=== PATIENT | male | born 1990 | race Two or more races ===

== ENCOUNTER 2018-11-13 09:48 | Emergency (ER) | payer SELFPAY ==
[~2018-11-13] VITALS: Ht 177.8 cm; Wt 90.7 kg
--- NOTE | 2018-11-13 10:13 | PHYS DOC ---
Adult General Chief Complaint Chief Complaint: LOWEREXTREMITY INJURY HPI HPI Patient is a 28 year old male with no significant medical history who presents today with nail in the left thigh. Patient states holding a nail gun trying to pass it to his workmate when he accidentally pulled the trigger sending the nail into his thigh. Review of Systems Review of Systems Constitutional: Denies fever or chills [] Musculoskeletal: Denies back pain or joint pain [] Integument: Reports nail in the left thigh Neurologic: Denies headache, focal weakness or sensory changes [] All other systems were reviewed and found to be within normal limits, except as documented in this note. Current Medications Current Medications Current Medications Medications (Trade) Dose Ordered Sig/Dimitry Start Time Stop Time Status Last Admin Dose Admin Acetaminophen/ Hydrocodone Bitart (Lortab 5/325) 2 tab 1X ONCE 11/13/18 10:45 11/13/18 10:46 DC 11/13/18 10:56 2 TAB Lidocaine HCl (Xylocaine 1% Pf 30ml Vial) 30 ml 1X ONCE 11/13/18 10:47 11/13/18 10:48 DC 11/13/18 10:55 30 ML Naproxen (Naprosyn) 500 mg 1X STAT 11/13/18 10:45 11/13/18 10:46 DC 11/13/18 10:56 500 MG Piperacillin Sod/ Tazobactam Sod 3.375 gm/Sodium Chloride 50 ml @ 100 mls/hr 1X ONCE 11/13/18 11:30 11/13/18 11:59 DC 11/13/18 11:30 100 MLS/HR Allergies Allergies Allergies Coded Allergies Type Severity Reaction Last Updated Verified No Known Drug Allergies 11/13/18 No Physical Exam Physical Exam Constitutional: Well developed, well nourished, no acute distress, non-toxic appearance. [] Skin: See extremity Back: No tenderness, no CVA tenderness. [] Extremities: Left ventral thigh distal end with a puncture wound no nail is visualized on the top of the skin. No cyanosis, no clubbing, Limited ROM due to pain. +2 left pedal pulse cap refill less than 2 seconds the left lower extremity. Sensation intact to the left lower extremity. Neurologic: Alert and oriented X 3, normal motor function, normal sensory function, no focal deficits noted. [] Psychologic: Affect normal, judgement normal, mood normal. [] Current Patient Data Vital Signs Vital Signs Date Time Temp Pulse Resp B/P (MAP) Pulse Ox O2 Delivery O2 Flow Rate FiO2 11/13/18 10:56 16 98 Room Air 11/13/18 10:37 98.4 99 142/89 (106) 98.4 EKG EKG [] Radiology/Procedures Radiology/Procedures []PROCEDURE: LEFT FEMUR XRAY Examination: LEFT FEMUR XRAY History: Nail in the thigh. Comparison/Correlation: None Findings: Frontal and lateral views of the left femur were obtained. Left femoral intramedullary deepak is present. Associated screws present at the proximal femoral shaft level. There are 2 screws transversely oriented with the deepak at the distal femoral metaphyseal level and at the level of the femoral condyles. There is a nail which is obliquely oriented anteroposteriorly along the medial aspect of the distal femoral shaft and diametaphyseal region. Callus formation is noted involving the distal femoral shaft. Impression: A nail is present within soft tissues medial to the distal femoral shaft level. Postoperative findings. Electronically signed by: Matthew Mejia MD (11/13/2018 10:27 AM) [id number] DICTATED and SIGNED BY: MATTHEW MEJIA MD DATE: 11/13/18 1025 Course & Med Decision Making Course & Med Decision Making Pertinent Labs and Imaging studies reviewed. (See chart for details) This is a 28-year-old male patient presented to the ED today with nail in his left thigh, see history of present illness. Tetanus up-to-date- he states it was given to him approx. 4 years ago. Left femur xay-A nail is present within soft tissues medial to the distal femoral shaft level. Postoperative findings. Patient was given Zosyn in the ED, wound was cleaned. Dressing applied. Consulted with DR. Winston, he states patient is to be given a broad-spectrum antibiotics and be discharged. He states patient is to call his clinic and set up a follow-up appointment as an outpatient. Above information provided to patient. Also discharged with Cephalexin and [place]. Dragon Disclaimer Dragon Disclaimer This electronic medical record was generated, in whole or in part, using a voice recognition dictation system. Departure Departure Impression: Primary Impression: Foreign body (FB) in soft tissue Disposition: 01 HOME, SELF-CARE Condition: STABLE Referrals: BEL WINSTON II, MD Raad his office today and set up a follow up appointment Patient Instructions: Foreign Body Additional Instructions: You were evaluated in the emergency room and noted to have a nail in your left thigh. Please contact the provided orthopedic doctor today and set up a follow- up appointment. Take the prescribed antibiotics until completed. Ice and elevate the extremity. Scripts Hydrocodone/Apap 5-325 (NORCO 5-325 TABLET) 1 Each Tablet 1-2 TAB PO Q6HRS PRN for PAIN, #30 TAB Prov: OLIVIA GUTIERREZ APRN 11/13/18 Cephalexin (CEPHALEXIN) 500 Mg Tablet 1 TAB PO QID, #40 TAB Prov: OLIVIA GUTIERREZ APRN 11/13/18 OLIVIA GUTIERREZ APRN Nov 13, 2018 10:13
--- NOTE | 2018-11-13 10:30 | RAD ---
Examination: LEFT FEMUR XRAY History: Nail in the thigh. Comparison/Correlation: None Findings: Frontal and lateral views of the left femur were obtained. Left femoral intramedullary deepak is present. Associated screws present at the proximal femoral shaft level. There are 2 screws transversely oriented with the deepak at the distal femoral metaphyseal level and at the level of the femoral condyles. There is a nail which is obliquely oriented anteroposteriorly along the medial aspect of the distal femoral shaft and diametaphyseal region. Callus formation is noted involving the distal femoral shaft. Impression: A nail is present within soft tissues medial to the distal femoral shaft level. Postoperative findings. Electronically signed by: Matthew Hilliard MD (11/13/2018 10:27 AM) [id number]
[2018-11-13 10:37] VITALS: BP 142/89
[2018-11-13] MEDS ORDERED: NAPROXEN 500 MG TABLET PO STA (10:45)
[2018-11-13] MEDS ORDERED: HYDROcodone/APAP 5/325MG 1 TAB TABLET PO ONE (10:45)
[2018-11-13] MEDS ORDERED: LIDOCAINE 1% PF 30 ML VIAL. INJ ONE (10:47)
[2018-11-13] MEDS ORDERED: PIPERACILLIN/TAZOBACTAM 3.375 GM in IV NORMAL SALINE 50ML 50 ML IV ONE (11:30)
[2018-11-13] MEDS ORDERED: HYDR-3164 PO (13:11)
[2018-11-13] MEDS ORDERED: CEPH500T PO (13:11)
[2018-11-13] MEDS ORDERED: NEOMY/BACITR/POLYMYXIN OINT PACKET. TP ONE (13:12)
[2018-11-14] MEDS ORDERED: LIDOCAINE 1% PF 2 ML VIAL. ID PRN (07:00)
[2018-11-14] MEDS ORDERED: ONDANSETRON PF 4 MG/2 ML VIAL. IV PRN (07:00)
[2018-11-14] MEDS ORDERED: fentaNYL PF VIAL 100 MCG/2 ML VIAL IV PRN ×2 (07:00)
[2018-11-14] MEDS ORDERED: HYDROmorphone 2 MG/ML VIAL IV PRN (07:00)
[2018-11-14] MEDS ORDERED: MORPHINE SULFATE 2 MG/ML VIAL. IV PRN (07:00)
[2018-11-14] MEDS ORDERED: PROCHLORPERAZINE 10 MG/2 ML VIAL. IV PRN (07:00)
[2018-11-14] MEDS ORDERED: IV RINGERS,LACTATED 1000ML 1,000 ML IV SCH (07:00)
== END 2018-11-13 13:21 | disposition home or self-care (01) ==
LOC: ER 09:48
DX: S70.352A Superficial foreign body, left thigh, initial encounter (principal); S71.142A Puncture wound with foreign body, left thigh, initial encounter; W29.4XXA Contact with nail gun, initial encounter; Y93.89 Activity, other specified; Y92.89 Other specified places as the place of occurrence of the external cause; Y99.8 Other external cause status
CPT/HCPCS: 73552; 96365; 99283; J2543

== ENCOUNTER 2018-11-21 06:42 | Day surgery (SDC) | payer SELFPAY ==
[~2018-11-21] VITALS: Ht 177.8 cm; Wt 90.7 kg
[~2018-11-21 06:42] MED LIST: CEPH500T PO; DEXAMETHASONE SOD PHOS 20 MG/5 ML VIAL. ONE; HYDR-3164 PO; LIDOCAINE 2% PF 5 ML VIAL. ONE; ONDANSETRON PF 4 MG/2 ML VIAL. ONE; PROPOFOL 20 ML IV ONE; fentaNYL PF VIAL 100 MCG/2 ML VIAL ONE
[2018-11-21] MEDS ORDERED: LIDOCAINE 1% PF 2 ML VIAL. ID PRN (07:00)
[2018-11-21] MEDS ORDERED: ONDANSETRON PF 4 MG/2 ML VIAL. IV PRN (07:00)
[2018-11-21] MEDS ORDERED: HYDROmorphone 2 MG/ML VIAL IV PRN (07:00)
[2018-11-21] MEDS ORDERED: PROCHLORPERAZINE 10 MG/2 ML VIAL. IV PRN (07:00)
[2018-11-21] MEDS ORDERED: IV RINGERS,LACTATED 1000ML 1,000 ML IV SCH (07:00)
[2018-11-21] MEDS ORDERED: fentaNYL PF VIAL 100 MCG/2 ML VIAL IV PRN ×2 (07:00)
[2018-11-21] MEDS ORDERED: MORPHINE SULFATE 4 MG/ML VIAL. IV PRN (07:00)
[2018-11-21] MEDS ORDERED: LIDOCAINE 1% PF 30 ML VIAL. ONE (07:12)
[2018-11-21] MEDS ORDERED: BUPIVACAINE MPF 0.5% 30 ML VIAL. ONE (07:13)
[2018-11-21] MEDS ORDERED: MIDAZOLAM HCL/PF 2 MG/2 ML VIAL. ONE (07:32)
[2018-11-21] MEDS ORDERED: fentaNYL PF VIAL 100 MCG/2 ML VIAL ONE (08:05)
[2018-11-21] MEDS ORDERED: PROPOFOL 20 ML IV ONE (08:06)
[2018-11-21] MEDS ORDERED: SEVOFLURANE 61 TO 120 MINUTES. IH ONE (08:21)
[2018-11-21] MEDS ORDERED: BUPIVAC MPF-EPI 0.5%-1:200000 30 ML VIAL. ONE (08:26)
[2018-11-21] MEDS ORDERED: BUPIVAC MPF-EPI 0.5%-1:200000 30 ML VIAL. INJ ONE (08:30)
[2018-11-21] MEDS ORDERED: SEVOFLURANE 31 TO 60 MINUTES. IH ONE (08:32)
--- NOTE | 2018-11-21 08:51 | DISCH ---
DISCHARGE INSTRUCTIONS Condition on Discharge Condition on Discharge: Stable Activity After Discharge Activity Instructions for Disc: Activity as tolerated Other activity instructions: no sports or athletics untiul cleared by surgeon Bathing Instructions: Shower-keep dressing dry Weight Bearing Status after Di: As tolerated Diet after Discharge Diet after Discharge: Regular Wound Incision Care Wound/Incision Care: Ice to area for comfort, Keep wound/cast CDI, Change dressing Other wound/incision instructi: ok to change dressing after [address] after DC Call your doctor for: Concerns you may have Follow-Up Follow up with: Delon in 2 wks BEL WINSTON II, MD Nov 21, 2018 08:51
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
[2018-11-21] MEDS ORDERED: DOCU-109 PO (08:59)
[2018-11-21] MEDS ORDERED: ONDA8TAB9 PO (09:00)
[2018-11-21] MEDS ORDERED: OXYC1TAB15 PO (09:00)
[2018-11-21] MEDS ORDERED: oxyCODONE/APAP 5/325 1 TAB TABLET PO ONE (09:30)
[2018-11-21 10:10] VITALS: BP 159/83
== END 2018-11-21 10:20 | disposition home or self-care (01) ==
LOC: SURG 06:42
PROVIDERS: ATTEND Orthopaedic Surgery Sports Medicine
DX: S70.352A Superficial foreign body, left thigh, initial encounter (principal); F17.210 Nicotine dependence, cigarettes, uncomplicated; Z98.890 Other specified postprocedural states; Z72.89 Other problems related to lifestyle; Z79.899 Other long term (current) drug therapy; W29.4XXA Contact with nail gun, initial encounter; Y93.89 Activity, other specified; Y92.89 Other specified places as the place of occurrence of the external cause; Y99.8 Other external cause status
CPT/HCPCS: 10121; 76000; A7015; J0696; J1100; J2001; J2250; J2405; J2704; J3010; J3490; A4461

== ENCOUNTER 2019-06-13 17:27 | Emergency (ER) | payer SELFPAY ==
[~2019-06-13] VITALS: Ht 170.2 cm; Wt 81.6 kg
[~2019-06-13 17:27] MED LIST changes: -DEXAMETHASONE SOD PHOS 20 MG/5 ML VIAL. ONE; +DOCU-109 PO; -LIDOCAINE 2% PF 5 ML VIAL. ONE; +ONDA8TAB9 PO; -ONDANSETRON PF 4 MG/2 ML VIAL. ONE; +OXYC1TAB15 PO; -PROPOFOL 20 ML IV ONE; -fentaNYL PF VIAL 100 MCG/2 ML VIAL ONE
[2019-06-13 17:50] VITALS: BP 146/75
[2019-06-13] MEDS ORDERED: AMOX1TAB61 PO (18:18)
--- NOTE | 2019-06-13 18:19 | PHYS DOC ---
Past Medical History Past Medical History: No Pertinent History Past Surgical History: Other Additional Past Surgical Histo: LEFT LEG Alcohol Use: Occasionally Drug Use: Marijuana Adult General Chief Complaint Chief Complaint: FOREIGNBODY EAR HPI HPI Patient is a 28 year old male that presents with foreign body in his left ear. The patient states yesterday that he got a Q-tip stuck in his left ear. He states she's tried to get it out himself and that he has been using drops in the ear that he's been unsuccessful. He states his been extremely painful 10 out of 10 pain. Review of Systems Review of Systems Constitutional: Denies fever or chills [] Eyes: Denies change in visual acuity, redness, or eye pain [] HENT: Reports L ear pain. Respiratory: Denies cough or shortness of breath [] Cardiovascular: No additional information not addressed in HPI [] GI: Denies abdominal pain, nausea, vomiting, bloody stools or diarrhea [] : Denies dysuria or hematuria [] Musculoskeletal: Denies back pain or joint pain [] Integument: Denies rash or skin lesions [] Neurologic: Denies headache, focal weakness or sensory changes [] Endocrine: Denies polyuria or polydipsia [] Complete systems were reviewed and found to be within normal limits, except as documented in this note. Allergies Allergies Allergies Coded Allergies Type Severity Reaction Last Updated Verified No Known Drug Allergies 06/13/19 No Physical Exam Physical Exam Constitutional: Well developed, well nourished, no acute distress, non-toxic appearance. [] HENT: Normocephalic, atraumatic, bilateral external ears normal, L tympanic membrane is blocked by foreign body. oropharynx moist, no oral exudates, nose normal. [] Eyes: PERRLA, EOMI, conjunctiva normal, no discharge. [] Neck: Normal range of motion, no tenderness, supple, no stridor. [] Cardiovascular:Heart rate regular rhythm, no murmur [] Lungs & Thorax: Bilateral breath sounds clear to auscultation [] Abdomen: Bowel sounds normal, soft, no tenderness, no masses, no pulsatile masses. [] Skin: Warm, dry, no erythema, no rash. [] Back: No tenderness, no CVA tenderness. [] Extremities: No tenderness, no cyanosis, no clubbing, ROM intact, no edema. [] Neurologic: Alert and oriented X 3, normal motor function, normal sensory funct ion, no focal deficits noted. [] Psychologic: Affect normal, judgement normal, mood normal. [] Current Patient Data Vital Signs Vital Signs Date Time Temp Pulse Resp B/P (MAP) Pulse Ox O2 Delivery O2 Flow Rate FiO2 06/13/19 17:50 98.5 61 18 146/75 (98) 97 Room Air 98.5 EKG EKG [] Radiology/Procedures Radiology/Procedures [] Course & Med Decision Making Course & Med Decision Making Pertinent Labs and Imaging studies reviewed. (See chart for details) Patient has Q-tip in L ear. Removed Q tip with alligator forceps. The tympanic membrane is erythematous in the L ear and bulging. Will place on Augmentin. Dragon Disclaimer Dragon Disclaimer This electronic medical record was generated, in whole or in part, using a voice recognition dictation system. Departure Departure Impression: Primary Impression: Foreign body of ear, left Additional Impression: Otitis media Disposition: 01 HOME, SELF-CARE Condition: STABLE Referrals: NO PCP (PCP) Patient Instructions: Ear Foreign Body, Otitis Media, Adult Additional Instructions: Thank you for visiting [facility]. We appreciate you trusting us with your care. If any additional problems come up don't hesitate to return to visit us. Please follow up with your primary care provider so they can plan additional care if needed and know about the problem that you had. If symptoms worsen come back to the Emergency Department. Any concerning symptoms that start such as chest pain, shortness of air, weakness or numbness on one side of the b tanika, running high fevers or any other concerning symptoms return to the ER. You have been prescribed an antibiotic today to help fight your infection. Please take all of the antibiotic as directed. If after 48 hours the infection is not improving, please return for more care. If the infection worsens, return to ER for additional care. Scripts Amoxicillin/Potassium Clav (AUGMENTIN 875-125 TABLET) 1 Each Tablet 1 TAB PO BID for 7 Days, #14 TAB Prov: NAN BEAVERS CLINICAL RN 06/13/19 Problem Qualifiers Primary Impression: Foreign body of ear, left Encounter type: initial encounter Qualified Codes: T16.2XXA - Foreign body in left ear, initial encounter Additional Impression: Otitis media Chronicity: acute Laterality: left NAN BEAVERS APRN Jun 13, 2019 18:19
== END 2019-06-13 18:26 | disposition home or self-care (01) ==
LOC: ER 17:27
DX: T16.2XXA Foreign body in left ear, initial encounter (principal); H66.92 Otitis media, unspecified, left ear
CPT/HCPCS: 69200; 99284

== ENCOUNTER 2019-08-17 09:34 | Emergency (ER) | payer SELFPAY ==
[~2019-08-17] VITALS: Ht 170.2 cm; Wt 90.7 kg
[~2019-08-17 09:34] MED LIST changes: +AMOX1TAB61 PO
[2019-08-17 09:35] VITALS: BP 175/75
[2019-08-17] MEDS ORDERED: ONDANSETRON PF 4 MG/2 ML VIAL. ONE (09:39)
[2019-08-17] MEDS ORDERED: HYDROmorphone 2 MG/ML VIAL ONE (09:40)
[2019-08-17] MEDS ORDERED: HYDROmorphone 2 MG/ML VIAL IV ONE ×3 (09:45→10:45)
[2019-08-17] MEDS ORDERED: hydrALAZINE 20 MG/ML VIAL. IVP ONE (09:45)
[2019-08-17] MEDS ORDERED: IV RINGERS,LACTATED 1000ML 1,000 ML IV ONE ×2 (09:45)
[2019-08-17] MEDS ORDERED: ONDANSETRON PF 4 MG/2 ML VIAL. IV ONE (09:45)
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
[2019-08-17 09:51] LABS: BASE EXCESS COOX -3 mmol/L (-3-3); HCO3 COOX 18 mmol/L (21-28); METHEMOGLOBIN 0.5 % (0.0-1.9); OXYHEMOGLOBIN 96.7 %; PCO2 COOX 23 mmHg (35-46); PO2 COOX 76 mmHg (85-108); SAT O2 COOX 98 % (92-99)
[2019-08-17 10:05] LABS: BASO % 0 % (0-3); EOS # 0.1 x10^3/uL (0.0-0.7); EOS % 1 % (0-3); HEMOGLOBIN 15.9 g/dL (13.0-17.5); LYMPH # 5.4 x10^3/uL (1.0-4.8); LYMPH % 45 % (24-48); MEAN CORPUSCULAR HEMOGLOBIN 28 pg (25-35); MEAN CORPUSCULAR HGB CONC 34 g/dL (31-37); MEAN CORPUSCULAR VOLUME 82 fL (79-100); MONO % 9 % (0-9); NEUT # 5.5 x10^3/uL (1.8-7.7); NEUT % 46 % (31-73); PLATELET COUNT 255 x10^3/uL (140-400); RED BLOOD COUNT 5.71 x10^6/uL (4.30-5.70); RED CELL DISTRIBUTION WIDTH 13.7 % (11.5-14.5)
[2019-08-17 10:15] LABS: CALCIUM 9.2 mg/dL (8.5-10.1); CREATININE 1.3 mg/dL (0.7-1.3); GFR 65.3; POTASSIUM 3.4 mmol/L (3.5-5.1)
[2019-08-17 10:21] LABS: ALBUMIN 4.3 g/dL (3.4-5.0); ALBUMIN/GLOBULIN RATIO 1.1 (1.0-1.7); TOTAL PROTEIN 8.2 g/dL (6.4-8.2)
[2019-08-17] MEDS ORDERED: fentaNYL PF VIAL 100 MCG/2 ML VIAL ONE (10:36)
[2019-08-17] MEDS ORDERED: TETANUS AND DIPHTHERIA TOX/PF 0.5 ML DISP.SYRIN. VAX IM ONE (10:37)
[2019-08-17] MEDS ORDERED: fentaNYL PF VIAL 100 MCG/2 ML VIAL IVP ONE (10:45)
== END 2019-08-17 10:48 | disposition short-term general hospital (02) ==
LOC: ER 09:34
DX: T22.312A Burn of third degree of left forearm, initial encounter (principal); T22.311A Burn of third degree of right forearm, initial encounter; T24.302A Burn of third degree of unspecified site of left lower limb, except ankle and foot, initial encounter; T24.301A Burn of third degree of unspecified site of right lower limb, except ankle and foot, initial encounter; T21.31XA Burn of third degree of chest wall, initial encounter; T20.39XA Burn of third degree of multiple sites of head, face, and neck, initial encounter; T31.33 Burns involving 30-39% of body surface with 30-39% third degree burns; X08.8XXA Exposure to other specified smoke, fire and flames, initial encounter; Y93.89 Activity, other specified; Y92.89 Other specified places as the place of occurrence of the external cause; Y99.8 Other external cause status
CPT/HCPCS: 36415; 36600; 80053; 82805; 85025; 96374; 96375; 96376; 99291; J1170; J2405; J3010; J7120